=== PATIENT | male | born 1975 | race Caucasian/White ===

== ENCOUNTER → 2017-02-28 | Day surgery (SDC) | payer OTHER ==
[~2017-02-28] MED LIST: SODIUM CHLORIDE LOCK 10 ML ONE; diphenhdrAMINE HCL 50 MG/1 ML VL ONE
[2017-02-28 07:47] LABS: Basophils # (auto) 0 uL; Basophils % (auto) 0.5 % (0.0-2.0); Eosinophils # (auto) 0.2 uL; Eosinophils % (auto) 5.4 % (0.0-7.0); Hemoglobin 10.6 g/dL (13.5-17.5); Lymphocytes # (auto) 1.4 uL; Lymphocytes % (auto) 36.6 % (10.0-50.0); Mean Corpuscular Hemoglobin 26.4 pg (28.0-32.0); Mean Corpuscular Hgb Conc. 32.1 g/dL (32.0-36.0); Mean Corpuscular Volume 82.2 fL (80.0-100.0); Mean Platelet Volume 8.3 fL (6.9-10.8); Monocytes # (auto) 0.4 uL; Monocytes % (auto) 9.6 % (0.0-12.0); Neutrophils # (auto) 1.8 uL; Neutrophils % (auto) 47.9 % (37.0-80.0); Nucleated Red Blood Cells % 0.1 %; Platelet Count (auto) 194 10^3/uL (140-450); Red Cell Distribution Width 14.3 % (11.8-14.3); White Blood Cell 3.7 10^3/uL (4.4-10.8)
[2017-02-28 07:49] LABS: INR 1.05 (0.9-1.15); Partial Thromboplastin Time 26.4 sec (22.64-33.71); Prothrombin Time 11.5 sec (9.37-12.3)
[2017-02-28] MEDS: fentaNYL CITRATE 100 MCG/2 ML VL ONE ×3 (09:05→09:17)
[2017-02-28] MEDS: MIDAZOLAM HCL 5 MG/ML-1ML VIAL ONE ×3 (09:05→09:17)
[2017-02-28 09:57] VITALS: BP 117/68
== END | disposition home or self-care (01) ==
LOC: GI 06:05
PROVIDERS: ATTEND Internal Medicine Gastroenterology
DX: K52.9 Noninfective gastroenteritis and colitis, unspecified (principal); K64.4 Residual hemorrhoidal skin tags
CPT/HCPCS: 36415; 45380; 85025; 85610; 85730; J1200; J2250; J3010; 99152

== ENCOUNTER 2018-08-03 06:15 | Day surgery (SDC) | payer OTHER ==
[2018-08-03 08:18] LABS: Basophils # (auto) 0 uL; Basophils % (auto) 0.4 % (0.0-2.0); Eosinophils # (auto) 0.2 uL; Eosinophils % (auto) 7.2 % (0.0-7.0); Hematocrit 37.1 % (41.0-53.0); Hemoglobin 12.3 g/dL (13.5-17.5); Lymphocytes % (auto) 32.3 % (10.0-50.0); Mean Corpuscular Hgb Conc. 33.2 g/dL (32.0-36.0); Mean Corpuscular Volume 84.2 fL (80.0-100.0); Monocytes # (auto) 0.2 uL; Monocytes % (auto) 8.2 % (0.0-12.0); Neutrophils # (auto) 1.6 uL; Neutrophils % (auto) 51.9 % (37.0-80.0); Platelet Count (auto) 171 10^3/uL (140-450); Red Cell Distribution Width 14.3 % (11.8-14.3)
[2018-08-03 08:22] LABS: INR 1.05 (0.9-1.15); Partial Thromboplastin Time 27.8 sec (23.78-33.04); Prothrombin Time 11.2 sec (9.27-12.13)
[2018-08-03] MEDS ORDERED: NALOXONE HCL 0.4 MG/ML VIAL ONE (08:25)
[2018-08-03] MEDS ORDERED: FLUMAZENIL 0.1 MG/ML INJ 10ML MDV IV ONE (08:25)
[2018-08-03] MEDS ORDERED: SODIUM CHLORIDE LOCK 10 ML ONE (08:26)
[2018-08-03] MEDS ORDERED: diphenhdrAMINE HCL 50 MG/1 ML VL ONE (08:26)
[2018-08-03] MEDS: fentaNYL CITRATE 100 MCG/2 ML VL ONE ×3 (09:22→09:34)
[2018-08-03] MEDS: MIDAZOLAM HCL 5 MG/ML-1ML VIAL ONE ×3 (09:22→09:34)
[2018-08-03 10:20] VITALS: BP 125/78
== END 2018-08-03 10:20 | disposition home or self-care (01) ==
LOC: EEVIPCON 06:15 → GI 06:15
PROVIDERS: ATTEND Internal Medicine Gastroenterology
DX: K52.89 Other specified noninfective gastroenteritis and colitis (principal); K59.00 Constipation, unspecified; K51.90 Ulcerative colitis, unspecified, without complications; K64.4 Residual hemorrhoidal skin tags; Z98.890 Other specified postprocedural states; Z96.81 Presence of artificial skin
CPT/HCPCS: 36415; 45380; 85025; 85610; 85730; 88305; J1200; J2250; J3010; J7030; 43239; 45378; 99152

== ENCOUNTER → 2018-10-28 | Outpatient (CLI) | payer OTHER ==
[2018-10-28 10:37] LABS: Albumin 3.9 g/dL (3.4-5.0); BUN/Creatinine Ratio 10.6; Potassium 4.7 mmol/L (3.5-5.1)
[2018-10-28 10:38] LABS: Basophils # (auto) 0 uL; Basophils % (auto) 0.4 % (0.0-2.0); Eosinophils # (auto) 0.1 uL; Eosinophils % (auto) 3.4 % (0.0-7.0); Hematocrit 38.1 % (41.0-53.0); Hemoglobin 12.5 g/dL (13.5-17.5); Lymphocytes # (auto) 1.1 uL; Lymphocytes % (auto) 34.3 % (10.0-50.0); Mean Corpuscular Hemoglobin 27.7 pg (28.0-32.0); Mean Corpuscular Hgb Conc. 32.9 g/dL (32.0-36.0); Mean Corpuscular Volume 84.3 fL (80.0-100.0); Monocytes # (auto) 0.3 uL; Monocytes % (auto) 10.2 % (0.0-12.0); Neutrophils # (auto) 1.6 uL; Neutrophils % (auto) 51.7 % (37.0-80.0); Nucleated Red Blood Cells % 0.1 %; Platelet Count (auto) 201 10^3/uL (140-450); Red Blood Cells 4.52 10^6/uL (4.5-5.90); Red Cell Distribution Width 16.3 % (11.8-14.3); White Blood Cell 3.2 10^3/uL (4.4-10.8)
[2018-10-28 10:44] LABS: Bilirubin, Total 0.3 mg/dL (0.2-1.0); Total Protein 8.2 g/dL (6.4-8.2)
[2018-10-29 09:31] LABS: Hepatitis B Surface Antibody Negative
[2018-10-29 10:06] LABS: Hepatitis A Total Antibody Negative
[2018-10-29 10:28] LABS: Hepatitis B Core Total AB Negative; Hepatitis B Surface Antigen Negative (Negative); Hepatitis C Antibody Negative (Negative)
== END | disposition home or self-care (01) ==
LOC: LAB 09:56
PROVIDERS: ATTEND Internal Medicine Gastroenterology
DX: K51.911 Ulcerative colitis, unspecified with rectal bleeding (principal)
CPT/HCPCS: 36415; 80053; 85025; 86704; 86706; 86708; 86803; 87340

== ENCOUNTER → 2019-07-27 | Outpatient (CLI) | payer OTHER ==
[2019-07-27 12:13] LABS: Basophils # (auto) 0 uL; Basophils % (auto) 0.2 % (0.0-2.0); Eosinophils # (auto) 0.1 uL; Eosinophils % (auto) 1.9 % (0.0-7.0); Hematocrit 43.2 % (41.0-53.0); Hemoglobin 14.2 g/dL (13.5-17.5); Lymphocytes # (auto) 1.4 uL; Lymphocytes % (auto) 37.9 % (10.0-50.0); Mean Corpuscular Hemoglobin 30.4 pg (28.0-32.0); Mean Corpuscular Hgb Conc. 32.7 g/dL (32.0-36.0); Mean Corpuscular Volume 92.9 fL (80.0-100.0); Monocytes # (auto) 0.3 uL; Neutrophils # (auto) 1.9 uL; Platelet Count (auto) 164 10^3/uL (140-450); Red Blood Cells 4.66 10^6/uL (4.5-5.90); Red Cell Distribution Width 15.1 % (11.8-14.3); White Blood Cell 3.6 10^3/uL (4.4-10.8)
[2019-07-27 12:39] LABS: Albumin 3.9 g/dL (3.4-5.0); Calcium 8.3 mg/dL (8.5-10.1); Potassium 4.1 mmol/L (3.5-5.1)
[2019-07-27 12:40] LABS: BUN/Creatinine Ratio 11.3
[2019-07-27 12:44] LABS: Bilirubin, Total 0.4 mg/dL (0.2-1.0); Total Protein 7.8 g/dL (6.4-8.2)
== END | disposition home or self-care (01) ==
LOC: LAB 12:03
PROVIDERS: ATTEND Internal Medicine Gastroenterology
DX: K51.911 Ulcerative colitis, unspecified with rectal bleeding (principal)
CPT/HCPCS: 36415; 80053; 85025